=== PATIENT | male | born 1980 | race Caucasian/White ===

== ENCOUNTER 2017-04-06 17:02 | Inpatient (IN) | payer BC ==
[~2017-04-06 17:02] MED LIST: ISOVUE-370 76%-LOCM 1 ML ONE
[2017-04-06] MEDS ORDERED: Ondansetron HCl/PF 4 MG/2 ML Vial ONE (17:28)
[2017-04-06 17:50] LABS: #Eosinphils 0.1 thou/uL (0.0-0.7); #Lymphocytes 2.7 thou/uL (1.20-3.40); #Neutrophils 12.7 thou/uL (1.40-6.50); %Basophils 0.2 % (0.0-1.0); %Eosinophils 0.8 % (0.0-10.0); %Lymphocytes 16.3 % (21.0-51.0); %Neutrophils 76.7 % (42.0-75.0); Hemoglobin 13.7 g/dL (14.0-18.0); Mean Corpuscular HGB CONC 33.5 g/dL (32.0-36.0); Mean Corpuscular Hemoglobin 29.3 pg (27.0-31.0); Mean Corpuscular Volume 87.4 fl (80.0-94.0); Mean Platelet Volume 8.4 fL (7.4-10.4); Platelet Count 260 thou/uL (130-400); RBC Distribution Width 13.3 % (11.5-14.5); Red Blood Cell (RBC) Count 4.67 mill/uL (4.70-6.10); White Blood Cell (WBC) Count 16.6 thou/uL (4.8-10.8)
[2017-04-06 17:57] LABS: INR-International Normal Ratio 1.2; PTT 27.1 SEC (22.9-36.1); Prothrombin Time 15.6 SEC (12.0-14.7)
[2017-04-06 18:11] LABS: ALT (SGPT) 60 U/L (8-55); AST (SGOT) 27 U/L (5-34); Albumin 3.7 g/dL (3.5-5.0); Alkaline Phosphatase 70 U/L (40-150); Anion Gap 9 mmol/L (10-20); BUN (Urea Nitrogen) 12 mg/dL (8.9-20.6); Bilirubin, Total 0.8 mg/dL (0.2-1.2); Calc. Creatinine Clearance 0 mL/min (70-130); Calcium 8.3 mg/dL (7.8-10.44); Carbon Dioxide 22 mmol/L (22-29); Chloride 112 mmol/L (98-107); Estimated GFR-MDRD 85; Globulin 2.3 g/dL (2.4-3.5); Glucose 123 mg/dL (70-105); Potassium 4.1 mmol/L (3.5-5.1); Sodium 139 mmol/L (136-145)
--- NOTE | 2017-04-06 18:21 | CT ---
CT ABDOMEN AND PELVIS WITH IV CONTRAST: 04/06/17 Multiple axial tomograms obtained through the abdomen and pelvis with IV enhancement. HISTORY: Lower GI bleed. The lung bases are clear. Liver, spleen, and pancreas are unremarkable. There are multiple calcified gallstones seen dependently in the gallbladder. No evidence of perichole cystic edema or inflammation. Adrenal glands are normal. Kidneys unremarkable. Small bowel loops normal. Appendix appears unremarkable. Colon is unremarkable. The left colon and si gmoid are decompressed. Mucosal lesions cannot be excluded on this study. Urinary bladder is mildly d istended and unremarkable. Prostate is unremarkable. Nonspecific mesenteric lymph nodes are seen. The se measure up to 1.2 to 1.5 cm. IMPRESSION: 1. Cholelithiasis. 2. Nonspecific mesenteric lymph nodes. 3. Otherwise no acute process. POS: [facility]
[2017-04-06] MEDS ORDERED: Ondansetron ODT 4 MG TAB SL PRN (20:35)
[2017-04-06] MEDS ORDERED: Ondansetron HCl/PF 4 MG/2 ML Vial IVP PRN ×2 (20:35→22:51)
[2017-04-06] MEDS ORDERED: Pantoprazole 80 MG, Admixture Fee 1 EACH in Sodium Chloride 0.9% 100 ML IVP SCH (20:45)
[2017-04-06] MEDS ORDERED: Sodium Chloride 0.45% 1,000 ML IV SCH (20:45)
[2017-04-06 21:30] VITALS: BMI 44.2
--- NOTE | 2017-04-06 22:11 | PDOC.FPRHP ---
- History of Present Illness Chief Complaint: BRBPR, rectal bleeding/pain History of Present Illness: PT Seen @ 04/06 36 yo M w/o significant pmh presents for evaluation of BRBPR. Pt reports he was working on his truck this afternoon and was in the process of sitting on his gravel driveway when his feet slipped out and he fell onto his buttocks and experienced a sharp, deep pain which he initially attributed to a piece of gravel. He subsequently had a bm and there was brb in the toilet after his BM and he then became clammy, sweaty and noticed her "fingertips turning white." He then went to the [place] ED where he had another BM and a syncopal episode in the ER bathroom. Per ER physician he was noted to be tachycardic and mildly hypotensive and was given 3LNS in the [facility] ED and transferred to [facility] for further evaluation. Initial Hgb was 15 which subsequently dropped to 13 after the second episode of hematochezia. Currently, pt denies cp, sob, nausea, vomiting diarrhea, abd pain, rectal pain, dizziness, changes in vision, dysuria , hematuria, numbness, tingling, and weakness. Also, reports the BRBPR had resolved after his 3rd BM since the initial episode. ED Course: PT was given 3.375gm zosyn, 3lNS, and zofran in [facility] ED CT ABD Pelvis showed no acute disease - Allergies/Adverse Reactions Allergies Allergy/AdvReac Type Severity Reaction Status Date / Time No Known Allergies Allergy Verified 04/06/17 20:47 - Home Medications Medication Instructions Recorded Confirmed Type Naproxen 250 - 500 mg PO BID PRN 04/06/17 04/06/17 History - History PMHx: None PSHx: Tonsillectomy FHx: Maternal DM Social: Prior Smoker 2 ppd, 12 pack yr hx. Quit approx 10 years ago. Social drinker. No drugs. - Review of Systems General: denies: fever/chills, weight/appetite/sleep changes, night sweats, fatigue Eyes: denies: eye pain, vision changes ENT: denies: nasal congestion, rhinorrhea Respiratory: denies: cough, congestion, shortness of breath Cardiovascular: denies: chest pain, palpitation, edema Gastrointestinal: reports: GI bleeding. denies: nausea, vomiting, diarrhea, constipation, abdominal pain Genitourinary: reports: other (Denies hematuria). denies: incontinence Skin: reports: other (loss of color). denies: rashes, jaundice Musculoskeletal: denies: pain, tenderness, arthritis/arthralgias Neurological: reports: syncope. denies: numbness, weakness Psychological: denies: anxiety, depression - Vital signs BP: 96/68 HR: 83 RR: 19 Tmax: 98.1 Pox: 96% on RA Wt: 147kg - Physical Exam Constitutional: NAD, awake, alert and oriented, well developed, other (Obese) HEENT: normocephalic and atraumatic, PERRLA, EOMI, conjunctiva clear, no scleral icterus, grossly normal hearing, MMM, oropharynx clear Neck: trachea midline, no LAD, no JVD, no bruits Heart: RRR, normal S1/S2, no murmurs/rubs/gallops, pulses present, no edema Lungs: CTAB, no respiratory distress, good air movement, no retractions Abdomen: soft, non-tender, bowel sounds present, no masses/distention Musculoskeletal: normal tone, ROM grossly normal Neurological: no focal deficit Skin: no rash/lesions, good turgor, capillary refill <2 seconds Heme/Lymphatic: no unusual bruising or bleeding, no purpura Psychiatric: normal mood and affect FMR H&P: Results - Labs Result Diagrams: 04/07/17 05:08 04/06/17 17:38 Lab results: WBC 16.6 thou/uL (4.8-10.8) H 04/06/17 17:38 Hgb 13.7 g/dL (14.0-18.0) L 04/06/17 17:38 Hct 40.8 % (42.0-52.0) L 04/06/17 17:38 MCV 87.4 fl (80.0-94.0) 04/06/17 17:38 Plt Count 260 thou/uL (130-400) 04/06/17 17:38 Neutrophils % 76.7 % (42.0-75.0) H 04/06/17 17:38 Sodium 139 mmol/L (136-145) 04/06/17 17:38 Potassium 4.1 mmol/L (3.5-5.1) 04/06/17 17:38 Chloride 112 mmol/L (98-107) H 04/06/17 17:38 Carbon Dioxide 22 mmol/L (22-29) 04/06/17 17:38 BUN 12 mg/dL (8.9-20.6) 04/06/17 17:38 Creatinine 1.01 mg/dL (0.6-1.3) 04/06/17 17:38 Glucose 123 mg/dL (70-105) H 04/06/17 17:38 Calcium 8.3 mg/dL (7.8-10.44) 04/06/17 17:38 Total Bilirubin 0.8 mg/dL (0.2-1.2) 04/06/17 17:38 AST 27 U/L (5-34) 04/06/17 17:38 ALT 60 U/L (8-55) H 04/06/17 17:38 Alkaline Phosphatase 70 U/L (40-150) 04/06/17 17:38 Serum Total Protein 6.0 g/dL (6.0-8.3) 04/06/17 17:38 Albumin 3.7 g/dL (3.5-5.0) 04/06/17 17:38 - EKG Interpretation EKG: Rate 84 NSR, no axis deviation - Radiology Interpretation CT scan - abdomen Status: report reviewed by me (No acute process. Cholelithiasis.) FMR H&P: A/P - Problem List (1) Bright red blood per rectum Current Visit: Yes Status: Acute Code(s): K62.5 - HEMORRHAGE OF ANUS AND RECTUM (2) Syncope Current Visit: Yes Status: Acute Code(s): R55 - SYNCOPE AND COLLAPSE - Plan 1) BRBPR: -Admit to tele -HGB slightly dropped after 3lNS, currently asymptomatic -recheck H&H @ 0000 04/07 -GI consulted from ED, appreciate recs -Will DC protonix drip -Continue IVF 1/2NS @ 125/hr - No pallor present on exam, normal cap refill 2) Syncope: -Likely 2/2 vasovagal, episodes occurred after witnessed brbpr -EKG showed NSR, HGB stable and decreased only after 3lNS - Admit to tele - Troponins negative and CKMB WNL - Neuro exam grossly intact 3) DIET: NPO 4) PPX: Pepcid IV, SCDs Disposition/LOS: Stable. >/= 2 days. Symtpomatic meds will be provided. FMR H&P: Upper Level - Pertinent history 36 yo CM with no significant PMHx presented to outside ED with BRBPR. Pt attempted 2 BMs today with extra straining than normal and little success. He then fell in his driveway getting into his car landing on his buttocks. During this fall, he felt a sharp pain deep in his anus. He then had a BM with small amount of bleeding. 20 minutes later, had BM with large amount of blood seen in toilet. A couple more BMs shortly thereafter had decreasing amounts of blood in stool. At one point, he felt dizzy after seeing blood in the toilet and almost passed out. Transferred from outside ED. In ambulance, pt started feeling carsick and threw up x1. Nonbloody emesis. Pt feels back to his baseline currently. No BM in last 5 hours. Denies dizziness, lightheadedness, CP, SOB, N/ V. No fevers. No abd pain or rectal pain. Rectal exam in both EDs showed internal hemorrhoid without bleeding. No hx of stool changes. No family hx IBD. No personal hx of colonic polyps. Pt admitted for workup of lower GI bleed. - Pertinent findings Gen: NAD, A&Ox4 HEENT: MMM CV: RRR, no m/r/g Lungs: CTAB anteriorly Abd: obese, NT/ND, neg Cabrales sign, BS+, no rebound/guarding Ext: no edema, cap refill <2 sec ED reported rectal exam showing thrombosed internal hemorrhoid without bleeding. Not repeated by me. CT abd/pelvis shows cholelithiasis without cholecystitis; no other findings - Plan Date/Time: 04/06/172 1. Lower GI bleed: Suspect bleeding internal hemorrhoid that appears to have stopped. H&H dropped from 15.7 to 13.7 although received heavy IV fluids. Pt appears at baseline with no complaints. GI consulted from ED. Zosyn given x1- will hold further abx. Protonix drip ordered but with nonbloody emesis from being carsick and BRBPR with hemorrhoid seen, do not suspect upper GI etiology so stopping. Repeat H&H at 0000. Blood products type and screened but no plan for administration at this time. VSS. Await further GI recs. If hemorrhoid most likely per GI, may be able to d/c home tomorrow as long as bleeding not restarted. Admitted to medical for expected 1-2 day stay. 2. GIBRAN, mild: Cr 1.19 down to 1.01. Likely continue improving with fluids. No baseline known but suspect related to volume contraction. 3. Transaminitis, mild: Slightly elevated ALT to 60. May be related to obesity with likelihood of early fatty liver changes although CT abd showed no liver pathology. Gallstones seen on imaging which could also cause transient transaminitis. No baseline to compare. Monitor. 4. Cholelithiasis: No cholecystitis on imaging. Incidental finding with no pain. Discussed with patient. Monitor. I, David Shepherd, have evaluated this patient and agree with findings/plan as outlined by internal control specialist resident. Pertinent changes/additions are listed here. Attending Addendum - Attending Addendum Date/Time: 04/07/17 07 I personally evaluated the patient and discussed the management with Dr. Menezes on 03/07/17. I agree with the History, Examination, Assessment and Plan documented above with any addition or exceptions noted below. The patient presented with bright red blood per rectum. Pt has anemia secondary to acute blood loss. Will trend h/h. GI has been consulted. Thrombosed internal hemorrhoid noted by ER physician on exam. Pt has no pain and blood in stool as improved. Pt was given IV fluids which can also help mild gibran. Cholelithiasis noted on CT scan but signs of cholecystitis.
[2017-04-06] MEDS ORDERED: Ondansetron ODT 4 MG TAB PO PRN (22:51)
[2017-04-06 23:54] LABS: Hemoglobin 11.6 g/dL (14.0-18.0); Platelet Count 210 thou/uL (130-400)
[2017-04-07 05:57] LABS: Hemoglobin 11.3 g/dL (14.0-18.0); Platelet Count 187 thou/uL (130-400)
[2017-04-07] MEDS ORDERED: Famotidine/PF 20 mg/2ml Vial SLOW IVP SCH (09:00)
[2017-04-07] MEDS ORDERED: Sodium Chloride 0.9% 10 ML ONE (09:02)
--- NOTE | 2017-04-07 10:49 | PDOC.FM ---
- Subjective Subjective: States he has a hx of gout and will prophylactically take naproxen two to three times a week when he eats a diet that will worsen his gout. States he has constipation and strains to stool at times. States his brbpr was painless. ER physician told him he had hemorroids on ELIZABETH. Denies any episodes of melena or brbpr since yesterday evening. - Objective MAR Reviewed: Yes Vital Signs & Weight: Vital Signs (12 hours) Temp Pulse Resp BP BP BP BP 04/07/17 09:30 97.4 F L 78 16 157/94 H 157/92 H 138/86 04/07/17 08:00 97.4 F L 78 16 125/80 04/07/17 05:39 77 18 127/55 L 04/07/17 00:00 97.9 F 75 18 125/79 Pulse Ox 04/07/17 09:30 97 04/07/17 08:00 97 04/07/17 05:39 96 04/07/17 00:00 95 Weight Weight 147.916 kg I&O: 04/06/17 04/07/17 04/08/17 06:59 06:59 06:59 Intake Total 398 Output Total 450 Balance -52 Result Diagrams: 04/07/17 11:46 04/06/17 17:38 <Kiki Phillips - Last Filed: 04/07/17 18:53> - Objective Vital Signs & Weight: Vital Signs (12 hours) Temp Pulse Resp BP BP BP BP 04/07/17 16:00 97.2 F L 70 18 141/90 H 04/07/17 12:00 97.1 F L 76 18 141/86 H 04/07/17 09:30 97.4 F L 78 16 157/94 H 157/92 H 138/86 Pulse Ox 04/07/17 16:00 98 04/07/17 12:00 98 04/07/17 09:30 97 Weight Weight 147.916 kg I&O: 04/06/17 04/07/17 04/08/17 06:59 06:59 06:59 Intake Total 398 910 Output Total 450 Balance -52 910 Result Diagrams: 04/07/17 11:46 04/06/17 17:38 <Vianey Caldera - Last Filed: 04/07/17 20:16> Phys Exam - Physical Examination Constitutional: NAD HEENT: PERRLA, moist MMs Respiratory: no wheezing, no rales, clear to auscultation bilateral Cardiovascular: RRR, no significant murmur Gastrointestinal: soft, non-tender, no distention, positive bowel sounds Musculoskeletal: no edema, pulses present Neurological: non-focal, normal sensation Lymphatic: no nodes Psychiatric: normal affect, A&O x 3 Skin: no rash, normal turgor <Kiki Phillips - Last Filed: 04/07/17 18:53> Dx/Plan (1) Symptomatic anemia Code(s): D64.9 - ANEMIA, UNSPECIFIED Status: Acute (2) Constipation Code(s): K59.00 - CONSTIPATION, UNSPECIFIED Status: Acute (3) Melena Code(s): K92.1 - MELENA Status: Acute (4) Gout Code(s): M10.9 - GOUT, UNSPECIFIED Status: Acute (5) Bright red blood per rectum Code(s): K62.5 - HEMORRHAGE OF ANUS AND RECTUM Status: Acute (6) Syncope Code(s): R55 - SYNCOPE AND COLLAPSE Status: Acute (7) Cholelithiasis Code(s): K80.20 - CALCULUS OF GALLBLADDER W/O CHOLECYSTITIS W/O OBSTRUCTION Status: Acute - Plan Plan: 36 yo male who presents with brbpr admitted for symptomatic anemia. 1.)BRBPR, painless -suspect hemorroids vs diverticulosis. -GI on board. Will follow up with their recommendations 2.)Symptomatic anemia, normoctyic -Downtrending H/H -Continue to fluid resuscitate -Continue serial H/H checks q4h -Iron studies, vit b12 and folate ordered -pending GI recs 3.)Constipation- -Will start a bowel regimen 4.) Hx of gout- -Takes naproxen regularly -Instructed to not take naproxen unless he has a flair -He has had several episodes of melena -Denies abdominal pain <Kiki Phillips - Last Filed: 04/07/17 18:53> (1) Bright red blood per rectum Code(s): K62.5 - HEMORRHAGE OF ANUS AND RECTUM Status: Acute (2) Syncope Code(s): R55 - SYNCOPE AND COLLAPSE Status: Acute <Vianey Caldera - Last Filed: 04/07/17 20:16> Attending Addendum - Attending Addendum Date/Time: 04/07/172014 I personally evaluated the patient and discussed the management with Dr. Phillips. I agree with the History, Examination, Assessment and Plan documented above with any addition or exceptions noted below. Hemoglobin has stabilized. The patient will see GI today. No more episodes of blood per rectum. <Vianey Caldera - Last Filed: 04/07/17 20:16>
[2017-04-07] MEDS ORDERED: Senokot 8.6 MG TAB PO PRN (10:54)
[2017-04-07 12:13] LABS: Hemoglobin 11.7 g/dL (14.0-18.0); Platelet Count 195 thou/uL (130-400)
[2017-04-07] MEDS ORDERED: GoLYTELY 4,000 ml Bottle PO SCH (17:15)
[2017-04-07 19:44] VITALS: BP 141/90; TEMP 97.2
[2017-04-07] MEDS ORDERED: Docusate 100 MG CAP PO SCH (21:00)
--- NOTE | 2017-04-07 21:39 | CON ---
DATE OF CONSULTATION: 04/07/2017 REASON FOR CONSULTATION: Hematochezia. CONSULTING PHYSICIAN: Vianey Caldera M.D. HISTORY OF PRESENT ILLNESS: The patient is a 36-year-old male with past medical history of gout, pre senting with complaints of hematochezia. He states he was in his usual state of health until yesterd ay when he sustained an injury while repairing his car onto and fell onto a gravel pathway. Upon imp act, he noted a sharp deep pain in roughly the suprapubic area that lasted only for a few minutes and subsided; however, later that day he had onset of bright red blood per rectum present characterized as blood present on both the toilet paper and in the toilet. He had two further episodes of hematoch ezia later that night, both in increase in volume in terms of the amount of blood loss. At this poin t, it prompted the patient to seek healthcare attention and while in the ER, he did have a much in da rker red stool, but was starting to resolve in terms of the amount of blood loss. He also did have a n episode of increased diaphoresis, pale fingers and lightheadedness, but this was not associated wit h any specific bleeding episode and rather occurred in between. However, last night he did have one additional bowel movement that was normal brown in coloration, and he has had no further bleeding sin ce that time. Currently, he denies any nausea, vomiting, fevers, chills, abdominal pain, odynophagia , dysphagia, or GI bleeding. Of note, the patient normally has 1-2 solid bowel movements per day amos t is with the special maneuver of increased straining in order to defecate. He also does take naprox en as needed for general aches and pains as well as for his gout. He has been informed that he had p rior diagnosis of hemorrhoids, but has never had any problems from this before. REVIEW OF SYSTEMS: A 10-category review of systems was obtained with all responsive negative except for the pertinent positives as listed in the HPI. PAST MEDICAL HISTORY: Gout. PAST SURGICAL HISTORY: Tonsillectomy. FAMILY HISTORY: No GI malignancies. SOCIAL HISTORY: Denies any tobacco or illicit drug use. Drinks approximately 1 drink per month. OUTPATIENT MEDICATIONS: Reviewed. ALLERGIES: None. PHYSICAL EXAMINATION: VITAL SIGNS: Temperature of 97.2, pulse 70, blood pressure 141/90, respiratory rate 18, satting 98% on room air. GENERAL: The patient is lying in bed comfortably in no acute distress. He is alert and oriented x4. NECK: Supple. No JVD noted. CARDIOVASCULAR: Regular rate and rhythm with no discernible murmurs, gallops or rubs. RESPIRATORY: Clear to auscultation bilaterally with no wheezes or rales. ABDOMEN: Normoactive bowel sounds, soft, nontender, nondistended. EXTREMITIES: No cyanosis, clubbing or edema. LABORATORY DATA: CBC with a white blood cell count of 16.6, hemoglobin 11.7, hematocrit 34.2, platel ets 195. Chemistry with a sodium of 139, potassium 4.1, chloride 112, CO2 of 22, BUN 12, creatinine 1.09, glucose 123, AST 27, ALT 60,f alkaline phosphatase 70, total bilirubin 0.8. INR 1.2. IMAGING DATA: CT abdomen and pelvis obtained on 04/06/2017 showed cholelithiasis and some nonspecifi c mesenteric lymph nodes, but otherwise did not see any overt abnormalities. ASSESSMENT AND PLAN: The patient is a 36-year-old gentleman with a past medical history of gout, pre senting with hematochezia. Hematochezia: The patient presenting with 3 episodes of hematochezia yesterday characterized as brig ht red blood per rectum that was present on both the toilet paper and in the toilet; however, through out the day yesterday, he had diminishing blood present in his stool and late last night had a stool that was completely devoid of blood. He has not had a bowel movement today, but has had no further e pisodes of hematochezia during this hospitalization; however, upon review of his labs, his baseline H &H is approximately 15 and 45 and when compared to his current H&H, did note a significant blood loss associated with these hematochezia episodes. When this was discussed with the patient and recommend ations were made for colonoscopy, he decided to defer colonoscopy at this time due to job constraints . Given his stable H&H and hemodynamic stability, this is a reasonable option. RECOMMENDATIONS: 1. The patient to be discharged today with followup in the GI clinic within 2 weeks for evaluation o f hematochezia and colonoscopy scheduled at that time. 2. Instructions were given to patient that if he should have recurrence of his hematochezia, he woul d immediately come back to the ER for more urgent colonoscopic evaluation. 3. We would place the patient on the higher fiber diet with instructions given about hemorrhoid prev ention. 4. We would avoid any NSAIDs. We will sign off at this time. Please call with any questions.
--- NOTE | 2017-04-09 05:40 | DIS-2 ---
DATE OF SERVICE: 04/07/2017 LOCATION: [facility] in [place], [place] DATE OF ADMISSION: 04/06/2017 DATE OF DISCHARGE: 04/07/2017 RESIDENT PHYSICIAN: Dr. Spenser Menezes ADMITTING ATTENDING: Dr. Vianey Caldera DISCHARGE ATTENDING: Dr. Vianey Caldera CONSULTATIONS: Gastroenterology, Dr. Manohar Cabrera PROCEDURES: Abdomen/pelvis CT done 04/06/2017 showed cholelithiasis. Nonspecific mesenteric lymph n odes. Otherwise, no acute process. PRIMARY DIAGNOSES: 1. Hematochezia, bright red blood per rectum. 2. Syncope. 3. Symptomatic anemia. SECONDARY DIAGNOSIS: Gout. DISCHARGE MEDICATIONS: Colace 100 mg p.o. b.i.d. DISCONTINUED MEDICATIONS: None. HISTORY OF PRESENT ILLNESS AND HOSPITAL COURSE: The patient is a 36-year-old male originally present ed after he suffered a fall while he was in the process of sitting on the ground, working on his [email or web address], approximately 1 foot after his feet slipped out on his gravel driveway and he fell on his buttocks . At that point, he felt a sharp pain and had attributed it to possibly a piece of gravel. Later on that day, the patient developed an episode of bright red blood per rectum and also experienced light headedness and felt that his fingers were turning white at which point the patient sought medical car e. On arrival to the ED, the patient suffered a syncopal episode while sitting on the toilet, which when he was given 3 liters normal saline and transferred to [facility] for ma nagement of what was thought to be symptomatic anemia. The patient's initial hemoglobin was 15.7, wh ich subsequently trended down to 11.4 after approximately [address] scan did not show evidenc e of diverticulitis or any other source of bleeding and the patient's red blood per rectum later subs ided. His hemoglobin was stable and the patient's vital signs remained stable throughout his stay. He was seen by Gastroenterology who recommended a high fiber diet in addition to a colonoscopy to be done outpatient. Prior to discharge, the patient was scheduled with Gastroenterology for an outpatie nt colonoscopy. The patient's discharge hemoglobin was 11.7, hematocrit of 34.2. DISPOSITION: The patient left the hospital in stable condition. DISCHARGE INSTRUCTIONS: 1. Location: Home. 2. Diet: High fiber. 3. Activity: Ad chilo. 4. Followup: Follow up with Gastroenterology in 2 weeks for an outpatient colonoscopy and follow up with your primary care provider in 7-10 days following discharge.
== END 2017-04-07 20:26 | disposition home or self-care (01) | DRG 378 ==
LOC: ERS 17:02 → 2NO 19:15
PROVIDERS: ADMIT Family Medicine; ATTEND Family Medicine
DX: K92.1 Melena (principal); D62 Acute posthemorrhagic anemia; M10.9 Gout, unspecified; W01.0XXA Fall on same level from slipping, tripping and stumbling without subsequent striking against object, initial encounter; Y93.89 Activity, other specified; Y92.014 Private driveway to single-family (private) house as the place of occurrence of the external cause; K59.00 Constipation, unspecified; R55 Syncope and collapse; K80.20 Calculus of gallbladder without cholecystitis without obstruction; Z87.891 Personal history of nicotine dependence
CPT/HCPCS: 36415; 74177; 85014; 85018; 85049; 85610; 85730; 86850; 86900; 86901; 99285; A4216; J2405; S0028

== ENCOUNTER 2017-10-15 14:58 | Inpatient (IN) | payer BC, OTHER ==
[~2017-10-15 14:58] MED LIST changes: +Dexamethasone 20 MG/5 ML VIAL ONE; +Glycopyrrolate 0.2 MG/ML 5 ML SYRINGE ONE; +Heparin 10,000 UNITS/ 10 ML VIAL ONE; -ISOVUE-370 76%-LOCM 1 ML ONE; +Lidocaine 1% PF 5 ML VIAL ONE; +Metoclopramide HCl 10 MG/2 ML VIAL ONE; +Ondansetron HCl/PF 4 MG/2 ML Vial ONE; +PHENYLEPHRINE-NS 100 MCG/ML 10 ML SYRINGE ONE; +PROPOFOL 200 MG/20 ML VIAL ONE; +Succinylcholine Chloride 20 MG/ML 10 ml SYRINGE FS ONE; +Vecuronium 10 MG VIAL ONE; +ePHEDrine/0.9% NaCl/PF SYRINGE 50 mg/10 ml ONE
[2017-10-15] MEDS ORDERED: Adacel (T-DAP) 0.5 ML VIAL ONE (15:16)
[2017-10-15] MEDS ORDERED: Fentanyl 100 MCG/2 ML VIAL ONE (15:19)
[2017-10-15] MEDS ORDERED: CEFAZOLIN 1 GM VIAL ONE (15:19)
--- NOTE | 2017-10-15 15:30 | RAD ---
THREE VIEWS OF THE RIGHT HAND: COMPARISON: None. HISTORY: Partial amputation of finger after a crush injury at work. FINDINGS: Three views of the right hand show a fracture dislocation of the small finger at the PIP joint. Ther e are fracture fragments surrounding the PIP joint. There is volar dislocation of the PIP joint. No radiopaque foreign body is seen. IMPRESSION: Fracture dislocation of the small finger proximal interphalangeal joint. POS: [facility]
--- NOTE | 2017-10-15 15:54 | RAD ---
THREE VIEWS OF THE RIGHT HAND: INDICATION: Partial amputation of the right hand after a crush injury at work. COMPARISON: Prior examination dated 10/15/17 at 2:52 p.m. FINDINGS: Since the comparison examination, the dislocated right small finger PIP joint appears to have underg one some improved alignment in the mediolateral dimension; however, remains palmarly dislocated in re lationship to the proximal phalanx. There is suspicion for a proximal phalangeal head fracture seen medial and palmar to the middle phalangeal base. No additional acute fracture is evident. There is a volar splint now in place. IMPRESSION: Persistent palmar dislocation of the small digit PIP joint with associated fracture proximal phalange al head. POS: [facility]
[2017-10-15] MEDS ORDERED: Hetastarch 6% 500 ML 500 ML ONE (18:15)
[2017-10-15] MEDS ORDERED: Bacitracin Zinc Ointment 30 gm TUBE ONE (18:15)
[2017-10-15] MEDS ORDERED: Bupivacaine PF 0.5% 30 ML VIAL ONE (18:15)
[2017-10-15] MEDS ORDERED: Lidocaine 2% 10 ML INJ ONE ×2 (18:15→18:33)
[2017-10-15] MEDS ORDERED: Betamet Acet/Betamet Na Ph 30 MG/5 ML VIAL ONE (18:15)
[2017-10-15] MEDS ORDERED: Heparin 10,000 UNITS/1 ML VIAL ONE ×2 (18:15→18:33)
[2017-10-15] MEDS ORDERED: Fentanyl 250 MCG/5 ML VIAL ONE (18:32)
[2017-10-15] MEDS ORDERED: Midazolam HCl 2 mg/2 ml Vial ONE (18:32)
[2017-10-15] MEDS ORDERED: Sodium Chloride 0.9% 30 ML ONE (19:27)
[2017-10-15] MEDS ORDERED: HEPARIN IVPB SCH (21:15)
[2017-10-15] MEDS ORDERED: SODIUM CHLORIDE 0.9% IVPB SCH (21:15)
--- NOTE | 2017-10-15 21:29 | RAD ---
INTRAOPERATIVE FLUOROSCOPIC IMAGES RIGHT FIFTH FINGER: 10/15/17 HISTORY: Intraoperative fluoroscopic images of the right fifth finger are submitted for interpretation. Fluoro scopic guidance was provided for Dr. Hayward. FINDINGS/IMPRESSION: Two wires transfix the fracture involving the distal portion of the distal phalanx right small finger with small anchor screw overlying the base of the middle phalanx. Correlation with intraoperative fi ndings is recommended. FLUOROSCOPY: Total fluoroscopy time is 46.5 seconds with total dose of 1.36 mGy. POS: [facility]
[2017-10-15] MEDS ORDERED: TETANUS AND DIPHTHERIA TOX/PF 0.5 ML DISP.SYRIN IM SCH (23:45)
[2017-10-15] MEDS ORDERED: RENALLY ADJUST ABX FS SCH (23:45)
[2017-10-15] MEDS ORDERED: Ondansetron HCl/PF 4 MG/2 ML Vial IV PRN (23:48)
[2017-10-15] MEDS ORDERED: Promethazine HCl 25 MG/ML VIAL IM PRN (23:48)
[2017-10-15] MEDS ORDERED: Bisacodyl 10 MG SUPP PR PRN (23:48)
[2017-10-15] MEDS ORDERED: Promethazine HCl 25 MG/ML VIAL ONE (23:51)
[2017-10-15] MEDS ORDERED: Meperidine HCl/PF 25 MG/ML VIAL IM PRN (23:52)
[2017-10-16] MEDS ORDERED: Vancomycin HCl 1 GM in Premix Bag 1 BAG IVPB SCH (00:30)
[2017-10-16 01:35] VITALS: BMI 46.1
[2017-10-16] MEDS: SODIUM CHLORIDE 0.9% IVPB SCH ×2 (03:18→23:59)
[2017-10-16] MEDS: HEPARIN IVPB SCH ×2 (03:18→23:59)
[2017-10-16] MEDS: Morphine 4 MG/ML VIAL SLOW IVP PRN ×2 (06:00→21:39)
[2017-10-16] MEDS ORDERED: Aspirin 81 mg Enteric Coated Tablet PO SCH (09:00)
[2017-10-16] MEDS: HYDROcodone/Acetaminophen 7.5/325 mg Tablet PO PRN (15:37)
[2017-10-17] MEDS: Aspirin 81 mg Enteric Coated Tablet PO SCH (08:42)
--- NOTE | 2017-10-17 14:30 | OP ---
DATE OF SURGERY: 10/15/2017 PREOPERATIVE DIAGNOSES: 1. Open dislocation of proximal phalangeal joint, right small finger. 2. Open fracture neck of proximal phalanx intraarticularly displaced, right small finger. 3. Extensor mechanism central slip avulsion, right small finger. 4. Collateral ligament radial and ulna laceration, steadfast rupture radial and ulnar. 5. Volar plate avulsion from the base of the middle phalanx. 6. Radial digital artery laceration. 7. Ulnar digital artery laceration. 8. Radial digital nerve laceration. 9. Mild to moderate contamination of the wound with 4 cm total laceration 1.5 cm on the skin bridge. POSTOPERATIVE DIAGNOSES: 1. Open dislocation of proximal phalangeal joint, right small finger. 2. Open fracture neck of proximal phalanx intraarticularly displaced, right small finger. 3. Extensor mechanism central slip avulsion, right small finger. 4. Collateral ligament radial and ulna laceration, steadfast rupture radial and ulnar. 5. Volar plate avulsion from the base of the middle phalanx. 6. Radial digital artery laceration 7. Ulnar digital artery laceration. 8. Radial digital nerve laceration. 9. Mild to moderate contamination of the wound with 4 cm total laceration 1.5 cm on the skin bridge. 10. Findings of minimal contamination, but marked crush injury to the nerve, artery that was injured as described above and marked crush intra-articular fracture. PROCEDURES PERFORMED: 1. Debridement of open fracture. 2. Debridement of wound in depth down to including bone, 13140 CPT. 3. Debridement of material associated open fracture, 51943 CPT, which is not ( ). 4. Open reduction and internal fixation complex intra-articular split condyle, proximal phalanx/at t he PIP joint. 5. Extensor mechanism reconstruction back to bone using a mini Mitek anchor with two heavy sutures. 6. Collateral ligament repair radial collateral PIP joint. 7. Collateral ligament repair, ulnar collateral ligament PIP joint. 8. Volar plate repair, PIP joint. 9. Closure wound 4 cm complex. 10. Microscopic digital nerve repair radial. 11. Microscopic radial artery digital repair using microscopic techniques. 12. C-arm supervision. 13. Intraoperative heparin. FINDINGS: Marked crush of deep soft tissues requiring patient to have microvascular techniques and r esection of quite a bit of damaged tissue, skin, soft tissue, and tendon. No flexor tendon laceratio n was seen and only the daquan over the PIP joint was damaged. DESCRIPTION OF PROCEDURE: After successful general LMA technique, the limb was prepped and draped. The patient had undergone a closed reduction attempt in the emergency room by Dr. Hayward at which t jenny he had some return of 1-1/2 second refill, but it would appear during the operation day that was primarily to a dorsal arterial supply, not to primary volar arteries. After successful general LMA technique, the limb was prepped and draped. I have not given any blocka de because of the severity of neurovascular damage. We then immediately extended his incision over t he dorsal central from PIP joint proximally and volar along the radial side with skin damage, but did not touch the bridge of the dorsal ulnar skin. It was here that we visualized palmarly that the pat ient's dislocation associated with complete volar plate laceration with about 1.5 mm of volar plate s till attached to the palmar base of the middle phalanx, collateral ligament x2 with a part of collate ral still attached on the radial base where at the small finger you could see an intra-articular frac ture with only about a 2.5 mm chondral bridge support and subchondral bone support in caudal involvem ent with 80% of the articular surface of the neck of the proximal phalanx. Finally, there was minima l amount of debris and soft tissue, but underwent formal debridement using following techniques: A. E xcisional technique. B. Instruments using curette, [place] blade, 15 blade knife, Soheila , and Tana, and the Pulsavac, total of 5 liters of Pulsavac pressure. After we performed debridement of all tissue including trimming excess and denuded dermis, epidermis, small amount of tendon material, as well as debridement of the joint, the bony surfaces with a curette, we then performed a 5 liter ir rigation and Pulsavac pressure. At that point, we then began the reconstructive repair now with the tourniquet inflated. The tourniquet was inflated and would last so for approximately 95 minutes. First, we rotated the la rger fragment in appropriate positions where the collaterals could realign and articular surface was near anatomic and then because it was such a complex piece, we had to hold it with a reduction clamp from the mini fragment synthesis set, pinned it with 2K wires coming from the radial side where most of the chondral surface was located onto the ulnar side in the dorsum. This gave excellent alignment . It was here that we could visualize the collateral ligaments likewise, the ulnar collateral was al so repaired with 4-0 Prolene. We could still visualize the volar plating at this point, repaired the volar plate using 4-0 Prolene 4 interrupted buried [id number]-[id number] sutures. Now, the extenso r mechanism reevaluated. We could see where a hole had been made and where the of the bone en tire central slip was involved and had gone ulnarly so was reduced and repaired the interossei on the radial side where it had been injured just above the collaterals, this was done with 4-0 Prolene, th en we used a Mitek mini anchor with a heavy suture using a one large hlokde-oy-dayon to repair the ce ntral slip back to his primary focus in the bone using the trough in bone technique with anchor. The digit was now healed in nearly full extension where we had a flexion posture. At this point, we the n finished debriding some skin with tenotomy scissors in combination with the 11 blade knife and a Be aver blade. The radiographs show near anatomic position, anchor was in excellent position, the K wir es were then cut, flushed with the bone and we were able to then visualize the flexor mechanism, saritha h had only A3 daquan laceration which was not repaired while there was no flexor profundus supe rficialis laceration remained mechanism other than the central slip was now intact. We finished debridement and irrigation with remainder of 1 liter Pulsavac, deflated the tourniquet, a nd then began the portion of [place]. We put the microscope in the field. We did a formal neuropla sty of both nerve, was found that the ulnar digital nerve was intact, but the ulnar artery showed a l arge gap almost 8 mm even with dissection. On the radial side, where there was a large damage to the nerve, the digital nerve identified, the artery was identified and the edges of the flap, but when t elsy microscope was brought to the field, we could see the radial digital artery, had approximately 3 m m area where the distal limb was not suitable for repair, so had to resect this. We then used a comb ination of Yajaira solution, mean arterial dilator for some microscopic to open this area, and placed a clamp. First clamp did not fail to achieve admission due to mechanical implications, then we used in dividual clamps. We then using 9-0 Nurolon suture to create appropriate inside out technique x7 sutures and then indiv idually tied each corner. We flipped the artery over, and after doing the initial suture being backe d off first, we did place a total of 6 sutures, released the tourniquet, there was minimal escape wit h suture, 9-0 Nurolon and then covered this with a moist sponge and saw excellent fill of the distal arterial bed and digit went from white to man almost within 10 heartbeats. We were able to then resect the digital nerve on both ends, closed it with 9-0 nylon as well interrup maggi simple pattern. The patient had finished the bolus of heparin immediately, and went on a heparin drip with a 350 mL per hour and once on the floor was raised to 700 units an hour. It was 350 units an hour and was initially raised to 700 units an hour. Excellent hemostasis had been obtained, subcutaneous and closed all with interrupted by the skin 4-0 nylon exception of 5-0 nylon or the neurovascular bundle, placed the limb in approximately 35 degrees flexion and finished the repair. We still had a pink digit tip without repair alone around the sutu re line when the final stitch in epidermis, dermis was accomplished. The patient then had a very lig htly applied bacitracin, Adaptic, 4 x 4s applied to his and size, a splint was applied and the replant tied to protect the extensor mechanism. We allowed the MP joint to be flexed and then the sm all finger maintained its immediate post-arterial repair flow picture throughout this episode. He le ft the operating room with a bulky dressing dorsal block and he had no complications.
[2017-10-17 14:57] LABS: Vancomycin, Trough 12.6 ug/mL
[2017-10-17] MEDS: HYDROcodone/Acetaminophen 7.5/325 mg Tablet PO PRN ×2 (15:46→22:46)
[2017-10-17] MEDS ORDERED: SODIUM CHLORIDE 0.9% IVPB SCH ×2 (21:45)
[2017-10-17] MEDS ORDERED: Hetastarch 6% 500 ML 500 ML IVPB SCH (21:45)
[2017-10-17] MEDS ORDERED: HEPARIN IVPB SCH ×2 (21:45)
[2017-10-17] MEDS ORDERED: HEXTEND 6% LR 500ML 500 ML IVPB SCH (22:00)
[2017-10-18] MEDS: Morphine 4 MG/ML VIAL SLOW IVP PRN (00:13)
[2017-10-18 07:16] VITALS: BP 121/71; TEMP 97.4
[2017-10-18] MEDS: Aspirin 81 mg Enteric Coated Tablet PO SCH (09:07)
[2017-10-18] MEDS: HYDROcodone/Acetaminophen 7.5/325 mg Tablet PO PRN (14:07)
--- NOTE | 2017-10-21 09:47 | DIS ---
DATE OF ADMISSION: 10/15/2017 DATE OF DISCHARGE: 10/18/2017 ADMISSION DIAGNOSES: 1. Open dislocation of proximal phalangeal, right small finger, interphalangeal joint. 2. Open fracture of proximal phalanx intraarticularly displaced, right small finger. 3. Extensor mechanism central slip of avulsion, right small finger. 4. Collateral ligament of radial and ulna laceration, right small finger. 5. Volar plate avulsion from base of middle phalanx, right small finger. 6. Radial digital artery laceration. 7. Ulnar digital artery laceration. 8. Radial digital nerve laceration. 9. Sfqmytsp-xh-wsic contamination of the wound 4 cm total laceration 1.5 cm ulnar skin bridge. DISCHARGE DIAGNOSES: 1. Open dislocation of proximal phalangeal, right small finger, interphalangeal joint. 2. Open fracture of proximal phalanx intraarticularly displaced, right small finger. 3. Extensor mechanism central slip of avulsion, right small finger. 4. Collateral ligament of radial and ulna laceration, right small finger. 5. Volar plate avulsion from base of middle phalanx, right small finger. 6. Radial digital artery laceration. 7. Ulnar digital artery laceration. 8. Radial digital nerve laceration. 9. Weqytxcr-xg-oklt contamination of the wound 4 cm total laceration 1.5 cm ulnar skin bridge. HOSPITAL COURSE: Patient was admitted, and underwent immediate debridement because he had a devascul arized limb with no circulation. Thus, he was taken to the hospital within 8 hours of arrival, and d ebridement of all open fractures, debridement of wound down to including bone, debridement of materia l associated with open fracture, open reduction and internal fixation intra-articular split condyle p roximal phalanx of the proximal interphalangeal joint fracture (unicondylar) extensor mechanism recon struction back to bone using a Mini Mitek anchor with two heavy sutures augmented, repair of radial c ollateral ligament PIP joint, collateral ligament repair, ulnar collateral ligament proximal phalange al joint of the same small finger. Volar plate repair of the PIP joint of small finger wound. [facility] debridement and irrigation, microscopic digital nerve repair, radial, microscopic radial artery r epair using microscopic techniques. C-arm supervision and intraoperative heparin. Because the patie nt then had a crush injury, and arterial repair caused placement and hospitalization for 36 hours ___ __ minimal. He had some pallor initially and will be added to his heparin drip which initially began with 500 units an hour, a bolus of 100 mL of Hespan followed by 50 mL Hespan IV per hour. Slowly ov er the next 36 hours begin to wean him off first the heparin and then the Hespan. The patient had an excellent capillary refill, no edema, and with dressing changes which shown no other infection, woun d separation and a 1.5 second refill time of discharge was to almost that of the adjacent nonaffected finger. The patient was then prepared for discharge with a new dressing. DISCHARGE DISPOSITION: Patient will have no dressing changes, will be followed up in 5 days, he bega n to take aspirin 24 hours prior to discharge then had two doses before he was discharged. We will g elly him 2 baby aspirin and then [place] for pain, anti-inflammatory and then no other used. He w as prepared for discharge, given a regular diet, we checked the splint and it was stable and he left the operating room without evidence of anesthetic or operative complications.
== END 2017-10-18 15:00 | disposition home or self-care (01) | DRG 906 ==
LOC: ERS 14:58 → SURG A 23:48
PROVIDERS: ADMIT Orthopaedic Surgery Hand Surgery; ATTEND Orthopaedic Surgery Hand Surgery
PROC: 0PST04Z Reposition Right Finger Phalanx with Internal Fixation Device, Open Approach (ICD-10-PCS; principal; 2017-10-15)
PROC: 0MQ70ZZ Repair Right Hand Bursa and Ligament, Open Approach (ICD-10-PCS; 2017-10-15)
PROC: 01Q60ZZ Repair Radial Nerve, Open Approach (ICD-10-PCS; 2017-10-15)
PROC: 03QB0ZZ Repair Right Radial Artery, Open Approach (ICD-10-PCS; 2017-10-15)
PROC: 0HQFXZZ Repair Right Hand Skin, External Approach (ICD-10-PCS; 2017-10-15)
DX: S67.196A Crushing injury of right little finger, initial encounter (principal); S62.616B Displaced fracture of proximal phalanx of right little finger, initial encounter for open fracture; S65.111A Laceration of radial artery at wrist and hand level of right arm, initial encounter; S65.011A Laceration of ulnar artery at wrist and hand level of right arm, initial encounter; S63.256A Unspecified dislocation of right little finger, initial encounter; S53.21XA Traumatic rupture of right radial collateral ligament, initial encounter; S64.21XA Injury of radial nerve at wrist and hand level of right arm, initial encounter; W31.89XA Contact with other specified machinery, initial encounter; Y92.69 Other specified industrial and construction area as the place of occurrence of the external cause; Y99.0 Civilian activity done for income or pay; Z23 Encounter for immunization
CPT/HCPCS: 12001; 36415; 76001; 80202; 90471; 90715; 96365; 96375; A4216; C1713; J0690; J0702; J1100; J1644; J2001; J2175; J2250; J2270; J2405; J2550; J2704; J2765; J3010; J3370; J3490; J7050; S0020

== ENCOUNTER 2018-01-24 08:06 | Day surgery (SDC) | payer OTHER ==
[2018-01-23 10:35] VITALS: BMI 40.6
[2018-01-24] MEDS ORDERED: CEFAZOLIN 2 GM/50 ML BAG ONE (09:38)
[2018-01-24] MEDS ORDERED: Midazolam HCl 2 mg/2 ml Vial ONE (12:26)
[2018-01-24] MEDS ORDERED: Fentanyl 100 MCG/2 ML VIAL ONE (12:26)
[2018-01-24] MEDS ORDERED: Bupivacaine PF 0.5% 30 ML VIAL ONE (12:35)
--- NOTE | 2018-01-24 14:01 | RAD ---
THREE VIEWS OF THE RIGHT SMALL FINGER: History: Fracture/dislocation of the PIP joint of the small finger. Comparison: 10-15-17 FINDINGS/IMPRESSION: Multiple limited intraoperative fluoroscopic views of the right small finger were submitted for inter pretation. There is a bone anchor along the proximal aspect of the middle phalanx near the PIP joint. There has been reduction of the previously seen PIP dislocation. POS: C
[2018-01-24] MEDS ORDERED: Ketorolac Tromethamine 30 MG/ML VIAL ONE (14:48)
[2018-01-24] MEDS ORDERED: PROPOFOL 200 MG/20 ML VIAL ONE (20:58)
--- NOTE | 2018-01-27 11:53 | OP ---
DATE OF PROCEDURE: 01/24/2018 PREOPERATIVE DIAGNOSES: 1. Right small finger painful wire. 2. Right small finger joint contracture or loss of both extension and flexion, flexion greater. PROCEDURES PERFORMED: 1. Right small finger proximal interphalangeal joint manipulation under anesthesia to 95 degrees flexion, -10 degree extension. 2. C-arm supervision. 3. Removal of the deep wire that was painful, distal proximal phalanx. 4. Fracture right small finger. ESTIMATED BLOOD LOSS: Less than 10 mL. TOURNIQUET TIME: 5 minutes. DESCRIPTION OF PROCEDURE: After successful general endotracheal anesthesia, the limb was prepped and draped. C-arm was brought into the field, identified the area, prepped and draped, and we then exsanguinated the limb, inflated tourniquet to 250 mmHg pressure. We brought the C-arm back in the field, identified the 2 K-wires in the distal and lateral orientation. We were able to take this incision and was carried down to skin and subcutaneous tissue right down to the more superficial of the two wires. Once this was done, we made an incision over the wire that was approximately 3 or 4 mm, dissected down to visualize first the more palmar one and then we went dorsal to that and identified the more longitudinal one. There was no hole in the retinaculum of extensor or flexor mechanisms. We removed the wire completely with a K-wire, obtained hemostasis, irrigated both pins and then closed the wound with interrupted 5-0 nylon suture. Job ID: [id number]
== END 2018-01-24 15:00 | disposition home or self-care (01) ==
LOC: SDC 08:06
PROVIDERS: ATTEND Orthopaedic Surgery Hand Surgery
DX: T84.84XA Pain due to internal orthopedic prosthetic devices, implants and grafts, initial encounter (principal); M24.541 Contracture, right hand
CPT/HCPCS: 76001; J1885; J2250; J2704; J3010; S0020

== ENCOUNTER 2018-04-01 06:48 | Day surgery (SDC) | payer OTHER ==
[2018-03-31 16:04] VITALS: BMI 40.6
[2018-04-01 07:31] LABS: #Eosinphils 0.3 thou/uL (0.0-0.7); #Monocytes 0.6 thou/uL (0.11-0.59); #Neutrophils 3.5 thou/uL (1.40-6.50); %Basophils 0.6 % (0.0-1.0); %Eosinophils 4.2 % (0.0-10.0); %Lymphocytes 40.1 % (21.0-51.0); %Monocytes 8.4 % (0.0-10.0); %Neutrophils 46.7 % (42.0-75.0); Hemoglobin 14.8 g/dL (14.0-18.0); Mean Corpuscular HGB CONC 32.5 g/dL (32.0-36.0); Mean Corpuscular Hemoglobin 26.6 pg (27.0-31.0); Mean Corpuscular Volume 81.9 fL (78.0-98.0); Mean Platelet Volume 8.4 fL (7.4-10.4); Platelet Count 188 thou/uL (130-400); RBC Distribution Width 14.1 % (11.5-14.5); Red Blood Cell (RBC) Count 5.54 mill/uL (4.70-6.10); White Blood Cell (WBC) Count 7.4 thou/uL (4.8-10.8)
[2018-04-01] MEDS ORDERED: Midazolam HCl 2 mg/2 ml Vial ONE (08:27)
[2018-04-01] MEDS ORDERED: Fentanyl 100 MCG/2 ML VIAL ONE ×2 (08:27→11:46)
[2018-04-01] MEDS ORDERED: Bacitracin Zinc Ointment 30 gm TUBE ONE (08:30)
[2018-04-01] MEDS ORDERED: Betamet Acet/Betamet Na Ph 30 MG/5 ML VIAL ONE (08:30)
[2018-04-01] MEDS ORDERED: Bupivacaine PF 0.5% 30 ML VIAL ONE (08:30)
[2018-04-01] MEDS ORDERED: Ketorolac Tromethamine 30 MG/ML VIAL ONE (11:20)
--- NOTE | 2018-04-01 11:52 | RAD ---
RIGHT FIFTH DIGIT TWO VIEWS: HISTORY: Fracture. FINDINGS: There is a single K-wire traversing the proximal interphalangeal joint of the 5th digit. There is a stable metallic density projecting along the base of the middle phalanx. IMPRESSION: As above. POS: MORIS
[2018-04-01] MEDS ORDERED: PROPOFOL 200 MG/20 ML VIAL ONE (13:45)
[2018-04-01] MEDS ORDERED: Lidocaine 1% PF 5 ML VIAL ONE (13:45)
[2018-04-01] MEDS ORDERED: Ondansetron PF 4 MG/2 ML Vial ONE (13:45)
[2018-04-01] MEDS ORDERED: Dexamethasone 20 MG/5 ML VIAL ONE (13:45)
--- NOTE | 2018-04-02 15:07 | OP ---
DATE OF PROCEDURE: 04/01/2018 PREOPERATIVE DIAGNOSES: 1. 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 2. Early intra-articular osteoarthritis. POSTOPERATIVE DIAGNOSES/FINDINGS: 1. Very tight capsule and check rein ligaments, palmar aspect, proximal interphalangeal joint, right small finger. 2. Dorsal extensor tendon stretch with healed insertion of central slip from previous repair and only minimal early arthritic changes. PROCEDURES PERFORMED: 1. Volar capsulotomy, proximal interphalangeal joint, small finger. 2. Volar check rein ligament release, proximal interphalangeal joint, right small finger. 3. Right extensor tenolysis. 4. Right flexor tenolysis. 5. Tenotomy, extensor tendon to just proximal aspect of the proximal phalangeal joint dorsally. 6. Extensor tendon repair after tenotomy , extensor just over the joint, PIPJ. 7. Application of short-arm splint with C-arm supervision. 8. Pinning of the proximal interphalangeal joint. 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 This is the operation undertaken after he got approved for the operation from his Worker's Comp, as well as therapy needed to achieve good results. DESCRIPTION OF PROCEDURE: After successful general LMA technique, limb was prepped and draped. A time-out was done appropriately. The patient then had 15 mL of 0.5 % Marcaine block at metacarpophalangeal joint level. We then exsanguinated the limb, inflated to 250 mmHg pressure, and then made a Rui type incision, zigzag over the PIP joint. We carried through skin and subcutaneous tissue. We identified the neurovascular bundle and dissected them free from the bony edges on the proximal phalangeal joint. We then identified a very tight check rein ligament, which was released and then we released the joint, volar plate, and some of the collaterals until we could gently achieve full extension after him being -35 when he first went to sleep. We deflated the tourniquet and made sure we had excellent hemostasis as well as good color and refill. When we saw that it was, we then closed this wound with interrupted 5-0 nylon in simple pattern. A dorsal incision was then made mimicking the previous injury incision in a J- shaped area. Carried down to bone. We could separate the extensor tendon from the lateral bands, which was done. This was done bilaterally on both sides. We then noted to have full extension of the joint and that there was some redundancy in the extensor tendon, but not over at its insertion, where it was previously repaired, but just proximal to the joint. For this reason, we then performed tenotomy, removed the 2.5 mm wide strip of the tendon at the point just proximal to the PIP joint and then closed this with interrupted 4-0 Prolene in a wawvmv-cs-kykrc pattern. He has tolerated it well. He had excellent apposition as well as 0 degree extension of the digit. The patient then had the joint pinned just before we tied the heavy sutures, this was at 0 degree extension and the C-arm confirmed K-wire position and there was no gross motion. Tourniquet was deflated second time, we closed the incision with interrupted 4-0 nylon dorsally. Bulky dressing was applied. We splint out to extend the MP joint at 60 degrees of flexion, PIP and DIP neutral at zero. Job ID: [id number] [facility]
== END 2018-04-01 14:15 | disposition home or self-care (01) ==
LOC: SDC 06:48
PROVIDERS: ATTEND Orthopaedic Surgery Hand Surgery
PROC: 0LN70ZZ Release Right Hand Tendon, Open Approach (ICD-10-PCS; principal; 2018-04-01)
PROC: 0RNW0ZZ Release Right Finger Phalangeal Joint, Open Approach (ICD-10-PCS; principal; 2018-04-01)
DX: M24.541 Contracture, right hand (principal); M19.041 Primary osteoarthritis, right hand; M20.021 Boutonniere deformity of right finger(s); Z98.890 Other specified postprocedural states; Z88.4 Allergy status to anesthetic agent
CPT/HCPCS: 36415; 85025; 85652; J0702; J1100; J1885; J2001; J2250; J2405; J2704; J3010; S0020

== ENCOUNTER → 2018-09-02 | Day surgery (SDC) | payer OTHER ==
[~2018-09-02] MED LIST changes: +Betamet Acet/Betamet Na Ph 30 MG/5 ML VIAL ONE; +Bupivacaine PF 0.5% 30 ML VIAL ONE; +CEFAZOLIN 1 GM VIAL ONE; -Dexamethasone 20 MG/5 ML VIAL ONE; +Fentanyl 100 MCG/2 ML VIAL ONE; -Glycopyrrolate 0.2 MG/ML 5 ML SYRINGE ONE; -Heparin 10,000 UNITS/ 10 ML VIAL ONE; -Lidocaine 1% PF 5 ML VIAL ONE; -Metoclopramide HCl 10 MG/2 ML VIAL ONE; -Ondansetron HCl/PF 4 MG/2 ML Vial ONE; +Ondansetron PF 4 MG/2 ML Vial ONE; -PHENYLEPHRINE-NS 100 MCG/ML 10 ML SYRINGE ONE; -PROPOFOL 200 MG/20 ML VIAL ONE; -Succinylcholine Chloride 20 MG/ML 10 ml SYRINGE FS ONE; -Vecuronium 10 MG VIAL ONE; -ePHEDrine/0.9% NaCl/PF SYRINGE 50 mg/10 ml ONE
[2018-09-02 10:43] LABS: #Basophils 0.1 thou/uL (0.0-0.2); #Eosinphils 0.7 thou/uL (0.0-0.7); #Monocytes 0.7 thou/uL (0.11-0.59); %Basophils 0.9 % (0.0-1.0); %Eosinophils 8.4 % (0.0-10.0); %Lymphocytes 35.5 % (21.0-51.0); %Monocytes 8.1 % (0.0-10.0); %Neutrophils 47.1 % (42.0-75.0); Hemoglobin 14.6 g/dL (14.0-18.0); Mean Corpuscular HGB CONC 32.1 g/dL (32.0-36.0); Mean Corpuscular Hemoglobin 26.8 pg (27.0-31.0); Mean Corpuscular Volume 83.4 fL (78.0-98.0); Mean Platelet Volume 8.9 fL (7.4-10.4); Platelet Count 187 thou/uL (130-400); RBC Distribution Width 14.3 % (11.5-14.5); Red Blood Cell (RBC) Count 5.46 mill/uL (4.70-6.10); White Blood Cell (WBC) Count 8.5 thou/uL (4.8-10.8)
[2018-09-02 12:07] LABS: Bacteria/HPF None Seen HPF (None Seen); Bilirubin Negative (Negative); Blood, Urine Negative (Negative); Clarity Clear (Clear); Glucose, Urine (Dipstick) Normal (Negative); Leukocyte Negative Leu/uL (Negative); Nitrite Negative (Negative); Protein, Urine (Dipstick) 10 mg/dL (Neg-Trace); RBC/HPF 0-3 HPF (0-3); Squamous Epithelial 0-3 HPF (0-3); Urobilinogen Normal mg/dL (Less than 2); WBC/HPF 0-3 HPF (0-3)
--- NOTE | 2018-09-02 18:57 | RAD ---
FINGERS RIGHT HAND: 09/02/18 Seven fluoroscopic images are presented from OR. INDICATIONS: Intraoperative imaging during right finger operative repair. FINDINGS/IMPRESSION: Intraoperative fluoroscopic images demonstrate repair of middle phalanx of fifth digit. POS: MORIS
--- NOTE | 2018-09-03 01:52 | OP ---
DATE OF PROCEDURE: 09/02/2018 PREOPERATIVE DIAGNOSES: 1. Joint contracture, proximal edge of joint, right small proximal interphalangeal joint. 2. Tendon adhesions, proximal phalanx, extensor mechanism, right small finger and posttraumatic severe osteoarthritis with bone lysis, joint narrowing, and bone deformity, retained radial side base of the middle phalanx making it complex. PROCEDURE PERFORMED: 1. Dorsal capsulectomy, proximal edge joint right small finger. 2. Extensor tenolysis, dorsal aspect, proximal phalanx, proximal phalangeal joint, right small finger; volar capsule release with volar plate release, right small finger proximal interphalangeal joint. Proximal phalangeal joint C-arm supervision. 3. Proximal phalangeal joint arthroplasty with InsideMaps silastic implant #2. COMPLICATIONS: None. TOURNIQUET TIME: Ninety-two minutes. ESTIMATED BLOOD LOSS: 20 mL. OTHER FINDINGS: Tendon adhesions, PIP joint dorsal capsular adhesions with tendon adhesion greater and severe osteoarthritis with marked deformity especially of the base of the middle phalanx. Procedure performed #1 which is listed above. INDICATIONS: Patient had an accident almost 10 months ago. Had now developed posttraumatic osteoarthritis, but we believe he had enough extensor mechanism to tolerate PIP joint flexion. 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 Also, warned him this would probably not improve his limited range, including loss of 20 degrees extension at the DIP joint. DESCRIPTION OF PROCEDURE: After successful general endotracheal, the limb was prepped and draped. Patient had the time-out done appropriately. We then gave him 20 mL of 0.5% Marcaine both julian-incisional and metacarpophalangeal joint block for the small finger. We then exsanguinated the limb, inflated tourniquet to 250 mmHg pressure. His previous incision was used centered on the PIP joint was extended 1 cm distal and proximal to see the entire extensor mechanism. We established a plane protecting the extensor mechanism throughout. We removed the previous sutures where the repairs were all healed. We then made a Z injury procedure through the extensor mechanism leaving 2 mm of central slip attached radially and then the entire central slip ulnarly of 2.2 cm proximal, where the Z exited the ulna midportion of the extensor mechanism over the middle proximal phalanx. Visualized the joint. It was markedly degenerated. Even with the extensor mechanism removed, we still could not remove the joint. Then, we did a formal tenolysis the scar from the skin, from the tendon, from the bone. This was markedly adherent in the distal 1 cm over the joint capsule. We performed a dorsal capsulectomy using a [place] blade. Then, we could release the collaterals partially and now could achieve 90 degrees of flexion. We then visualized the volar plate. The base of the middle phalanx had a large volar osteophyte and central joint, so I removed the volar osteophyte first. Then, we made a 2.5 mm bone cut with a saw protecting the underlying volar plate. The volar plate was released from inside the joint out, staying close to the midline and not straying towards the collaterals or the neurovascular bundle. Now, we could achieve full extension passively without tension and 110 degrees of flexion. We then used a bur to bur the articular remnant off the base of the middle phalanx, and then we began with the starter broach. The starter broach was placed under C-arm supervision as we had to slightly ulnar insert the starter broach in appropriate external rotation in the middle phalanx because of the remnant anchor. We had no such difficulties and we were easily able to broach the canal to the point of two proximally and two distally. We placed #2 trial prosthesis in and we maintained 110 degrees easy flexion and full extension without tension. This was the final selected prosthesis size. The collaterals had remained intact on the ulnar side. We did not repair the radial collateral. The patient then had the final prosthesis placed. We closed the extensor mechanism using interrupted [id number] sutures and we still could flex the joint to 110 degrees passively. We then released the tourniquet, obtained hemostasis, closed the skin with interrupted 4-0 nylon and took radiographs with 105 degrees of passive flexion. Extension was full. This did not change the flexion-extension tenodesis effect at the DIP joint, but at the PIP joint, the patient with a -10 for extensor tenodesis and 85 degrees for flexion tenodesis. The patient then had a bulky dressing applied and left the operating room without evidence of anesthetic or operative complication with a splint in the position of function. Job ID: [id number]
== END ==
LOC: SDC 09:13
PROVIDERS: ATTEND Orthopaedic Surgery Hand Surgery
PROC: 0RNW0ZZ Release Right Finger Phalangeal Joint, Open Approach (ICD-10-PCS; principal; 2018-09-02)
PROC: 0RU Upper Joints, Supplement (ICD-10-PCS; principal; 2018-09-02)
DX: M24.541 Contracture, right hand (principal); M67.843 Other specified disorders of tendon, right hand; M19.041 Primary osteoarthritis, right hand; Z88.3 Allergy status to other anti-infective agents; Z79.1 Long term (current) use of non-steroidal anti-inflammatories (NSAID)
CPT/HCPCS: 76000; 81001; 85025; C1776; J0690; J0702; J2405; J3010; J3490; J7620; S0020